=== PATIENT | female | born 1945 | race Caucasian/White ===

== ENCOUNTER 2016-09-12 12:48 | Emergency (ER) | payer OTHER ==
[2016-09-12 12:54] VITALS: BMI 33.8
--- NOTE | 2016-09-12 13:07 | PDOC ---
History of Present Illness <MaynorTorey fishman - Last Filed: 09/12/16 18:04> - History of Present Illness Initial Comments: 09/12/16 13:30 The patient is a 71 year old female, with a significant past medical history of hypertension, high cholesterol, COPD, abdominal surgical history including exploratory laparotomy for endometriosis with subsequent strangulate and hernia in 1988 w/o complications or obstructions since then now presents with 2 weeks of constant abdominal pain, bloating and constipation. She reports seeing her PCP seven days after the onset of her onset of symptoms where she had an abdominal CT revealing an "infection of her large intestine." She reports completing a course of flagyl 2 days ago but denies improvement of her symptoms. She states she feels mild intermittent nausea, but denies emesis. She states she has not been passing gas from below or above. She admits to having an appetite, however, reports a decreased in PO intake secondary to increased abdominal pain after eating. She reports taking laxatives with 2 subsequent small bowel movement last night. She describes her BM as small pieces of feces mixed with water. She reports she is urinating well without any acute symptoms. She denies chest pain, shortness of breath, headache and dizziness. She denies fever, chills, vomit, diarrhea. She denies dysuria, frequency, urgency and hematuria. Allergies: codeine phosphate Past surgical history: abdominal exploratory x2 (endometriosis), hernia repair ( 1988) PCP - Dr. Carlos Cuellar <Mireya Corrales - Last Filed: 09/12/16 18:08> - General Chief Complaint: Pain, Acute Stated Complaint: PAIN Time Seen by Provider: 09/12/16 13:06 Past History - Past Medical History Anemia: No Asthma: Yes ( A CHILD, hx of TB) Cancer: No Cardiac Disorders: No CVA: No COPD: No (BRONCHITIS) CHF: No Dementia: No Diabetes: No GI Disorders: Yes (ULCER) Disorders: Yes (endometriosis) HTN: Yes Hypercholesterolemia: Yes Liver Disease: No Seizures: No Thyroid Disease: Yes (HYPOTHYROIDISM) Lung CA: Yes (anxeity) - Surgical History Abdominal Surgery: Yes (HERNIA &explaratory x2) Appendectomy: No Cardiac Surgery: No Cholecystectomy: No Lung Surgery: No Neurologic Surgery: No Orthopedic Surgery: No (KNEE PAIN-HAS KNEE BRACES) - Psycho/Social/Smoking Cessation Hx Anxiety: No Suicidal Ideation: No Smoking History: Former smoker Have you smoked in the past 12 months: No If you are a former smoker, when did you quit?: 2006 Information on smoking cessation initiated: No Hx Alcohol Use: No Drug/Substance Use Hx: No Substance Use Type: None Hx Substance Use Treatment: No <Torey Gordon - Last Filed: 09/12/16 18:04> <Mireya Corrales - Last Filed: 09/12/16 18:08> - Past Medical History Allergies/Adverse Reactions: Allergies Allergy/AdvReac Type Severity Reaction Status Date / Time codeine phosphate AdvReac Intermediate depression Verified 09/12/16 12:50 [From Codeine Phosphate Soluble] Home Medications: Ambulatory Orders Lisinopril/Hydrochlorothiazide [Lisinopril-Hctz 10-12.5 mg Tab] 1 each PO DAILY #0 tablet 11/18/11 Ranitidine Oral Solution [Zantac Oral Solution -] 150 mg PO BID #0 cup 11/18/11 Advair 100Mcg/50Mcg - 1 g NEB Q12H 06/21/13 Albuterol Sulfate 1 inh IH TID 06/21/13 Levothyroxine Sodium 100 mcg PO DAILY 06/21/13 Singulair - 10 mg PO DAILY 06/21/13 Xanax - 2 mg PO BID PRN 06/21/13 Budesonide/Formeterol Fumarate [SYMBICORT 160/4.5mcg -] 2 inh IH BID #7 inhaler 09/05/14 Fenofibric Acid [Trilipix -] 135 mg PO DAILY #0 cap 09/05/14 Review of Systems - Review of Systems Constitutional: No: Chills, Fever Respiratory: No: Cough, Shortness of Breath Cardiac (ROS): No: Chest Pain ABD/GI: Yes: Constipated, Nausea, Poor Appetite. No: Diarrhea, Vomiting : Yes: Flank Pain. No: Dysuria, Hematuria All Other Systems: Reviewed and Negative <Torey Gordon - Last Filed: 09/12/16 18:04> *Physical Exam - Vital Signs Last Vital Signs Temp Pulse Resp BP Pulse Ox 98.0 F 95 H 18 138/65 100 09/12/16 12:50 09/12/16 12:50 09/12/16 12:50 09/12/16 12:50 09/12/16 12:50 <Torey Gordon - Last Filed: 09/12/16 18:04> - Vital Signs Last Vital Signs Temp Pulse Resp BP Pulse Ox 98.0 F 95 H 18 138/65 100 09/12/16 12:50 09/12/16 12:50 09/12/16 12:50 09/12/16 12:50 09/12/16 12:50 - Physical Exam Comments: 09/12/16 13:30 GENERAL: The patient is awake, alert, and fully oriented, in no acute distress. HEAD: Normal with no signs of trauma. EYES: Pupils equal, round and reactive to light, extraocular movements intact, sclera anicteric, conjunctiva clear with no pallor. ENT: (+) dry mucous membranes. Ears normal, nares patent, oropharynx clear without exudates. NECK: Normal range of motion, supple without lymphadenopathy, JVD, or masses. LUNGS: Breath sounds equal, clear to auscultation bilaterally. No wheeze/ crackles. HEART: Regular rate and rhythm, normal S1 and S2 without murmur or rub. ABDOMEN: (+) Pt has decreased bowel sounds on the left. Slightly distended but soft. There is left mid and lower quadrant tenderness to palpation with referred pain and tenderness to the right. Right CVA tenderness. no upper abdominal tenderness. Pt has healed incisional scars to lower abdomen. There is an easily reducible ventral hernia. Soft. nondistended. No guarding or rebound. No palpable masses. No hepatosplenomegaly. EXTREMITIES: Normal range of motion, no edema. No clubbing or cyanosis. No cords, erythema, or tenderness. NEUROLOGICAL: Cranial nerves II through XII grossly intact. Normal speech, normal gait. PSYCH: Normal mood, normal affect. SKIN: Warm, Dry, normal turgor, no rashes or lesions noted. RECTAL: Good tone, soft brown stool in rectal vault. no palpable hemorrhoids. No masses <Mireya Corrales - Last Filed: 09/12/16 18:08> ED Treatment Course - LABORATORY CBC & Chemistry Diagram: 09/12/16 13:35 09/12/16 13:35 <Torey Gordon - Last Filed: 09/12/16 18:04> - LABORATORY CBC & Chemistry Diagram: 09/12/16 13:35 09/12/16 13:35 - RADIOLOGY Radiograph Interpretation: 09/12/16 16:[address] was read by Dr. Kirk at 16:51 Impression: No definite CT findings of acute pathology identified. Sigmoid diverticulosis is noted without evidence of acute diverticulitis. 2mm nonobstructing left renal calculus. A nonspecific 4mm enhancing subscapular focus is seen along the right hepatic dome-?hemangioma. Correlate clinically and with 3 month follow-up contrast enhanced CT or MRI. Possible diffuse hepatic steatosis. <Mireya Corrales - Last Filed: 09/12/16 18:08> Medical Decision Making - Medical Decision Making 09/12/16 13:33 A portion of this note was documented by scribe services under my direction. I have reviewed the details of the note, within reason, and agree with the documentation with the following case summary and management plan written by me. 71-year-old female with history of hypertension, high cholesterol, COPD, abdominal surgical history including exploratory laparotomy for endometriosis with subsequent strangulate and hernia in 1988, no complications or obstructions since then now presents with 2 weeks of constant abdominal pain with constipation. Patient noted constipation with abdominal bloating and generalized discomfort for one week, had a CAT scan by her primary physician that showed a "large intestine infection" and she was treated with Flagyl for one week without improvement in her symptoms. She also took laxatives with 2 subsequent small bowel movement last night, presents today for persistent pain and distention and constipation. Vital signs normal. Generally well-appearing, slightly dry mucosa Abdomen is soft but distended, tender predominantly in the left mid and left lower quadrant with some guarding but no rebound. No referred pain. Mild right CVA tenderness. Ventral hernia but not incarcerated, spontaneously reduces. 71-year-old female with abdominal surgical history presents with constipation and persistent abdominal pain. Based on the recent CT, question diverticulitis or colitis but only partially treated with Flagyl. Rule out SBO or ileus given her history. Rule out UTI given the right CVA pain. Labs, urinalysis CT of the abdomen and pelvis Pain control, nausea and rolled, hydration Reassess 09/12/16 14:41 White count 8.5 with normal differential, chemistries are within normal limits including lipase. Urinalysis pending. CAT scan pending. Feels better after pain/nausea meds. 09/12/16 17:29 CTAP without acute pathology. Feels much better, abdominal exam improved. Passing flatus but no BM here. No evidence of tics/colitis/impaction on CTAP. Requesting food, will PO trial and reassess. ? gastritis as cause of post-prandial bloating. Would increase zantac to twice daily and have GI referral for egd and colonoscopy. Pt agrees, will f/u with her PMD, understands return criteria. <Torey Gordon - Last Filed: 09/12/16 18:04> *DC/Admit/Observation/Transfer <Torey Gordon - Last Filed: 09/12/16 18:04> - Attestations Scribe Attestion: 09/12/16 13:33 Documentation prepared by Mireya Corrales, acting as medical supply technician for Torey Gordon MD, <Mireya Corrales - Last Filed: 09/12/16 18:08> Diagnosis at time of Disposition: Abdominal pain, left lower quadrant Constipation Qualifiers: Constipation type: unspecified constipation type Qualified Code(s): K59.00 - Constipation, unspecified - Discharge Dispostion Disposition: HOME Condition at time of disposition: Improved - Referrals Referrals: Carlos Cuellar MD [Primary Care Provider] - Raymon Hoff MD [Staff Physician] - Sedrick Kim DO [Staff Physician] - - Patient Instructions Printed Discharge Instructions: DI for Gastritis, DI for Constipation Additional Instructions: Activity as tolerated. Stay hydrated. Advance diet as tolerated, avoiding dairy , spicy or fatty food, caffeine and alcohol. Blood tests and a CT scan showed no acute abnormalities. There is no evidence of a current intestine infection or blockage. Your symptoms could be due to gastritis, inflammation in the stomach. Increase Zantac to twice daily and you should see a GI specialist for both upper and lower endoscopy. Continue your medications as previously prescribed by your physician, but increase Zantac to twice daily. You should follow up with your primary doctor and a GI specialist (consider calling Dr. Kim or Dr. Hoff) as soon as possible regarding today's emergency department visit. Return to the emergency department for any new or concerning symptoms, particularly persistent or worsening pain, fevers or chills, bloody stool or severe constipation, vomiting.
[2016-09-12] MEDS ORDERED: SODIUM CHLORIDE 1,000 ML IV ONE (13:27)
[2016-09-12] MEDS ORDERED: ONDANSETRON 4 MG/2 ML VIAL IVPB ONE (13:27)
[2016-09-12] MEDS ORDERED: morphine CARPU-JECT 4 MG/1 ML DISP.SYRIN IVPUSH ONE (13:27)
[2016-09-12 13:45] LABS: MCH 25.1 pg (25.7-33.7); MCHC 32.1 g/dl (32.0-36.0); MEAN CELL VOLUME 78.1 fl (80-96); MEAN PLT VOLUME 7.9 fl (7.5-11.1); PLATELET COUNT 291 K/MM3 (134-434); RDW 16.8 % (11.6-15.6); WHITE BLOOD COUNT 8.5 K/mm3 (4.0-10.0)
[2016-09-12] MEDS ORDERED: morphine CARPU-JECT 4 MG/1 ML DISP.SYRIN ONE (13:58)
[2016-09-12 14:09] LABS: ALBUMIN 4.5 g/dl (3.4-5.0); ALK PHOS 114 U/L (45-117); ANION GAP 8 (8-16); BILIRUBIN,TOTAL 0.4 mg/dL (0.2-1.0); CALCIUM 9.8 mg/dL (8.5-10.1); CO2 30 mmol/L (21-32); CREATININE 0.7 mg/dL (0.55-1.02); GLUCOSE,RANDOM 102 mg/dL (74-106); SGPT/ALT 59 U/L (12-78); TOT PROT 7.9 g/dl (6.4-8.2)
[2016-09-12 14:12] LABS: SGOT/AST 61 U/L (15-37)
[2016-09-12 14:15] LABS: PLATELET ESTIMATE ADEQUATE (NORMAL)
[2016-09-12 15:13] LABS: URINE APPEARANCE CLEAR; URINE BILIRUBIN NEGATIVE (NEGATIVE); URINE BLOOD NEGATIVE (NEGATIVE); URINE COLOR YELLOW; URINE GLUCOSE (UA) NEGATIVE (NEGATIVE); URINE KETONE NEGATIVE (NEGATIVE); URINE NITRITE NEGATIVE (NEGATIVE); URINE PROTEIN NEGATIVE (NEGATIVE); URINE UROBILINOGEN NEGATIVE E.U./dl (0.2-1.0)
[2016-09-12 15:16] LABS: URINE LEUK ESTERASE TRACE (NEGATIVE)
[2016-09-12 17:27] VITALS: BP 117/66; PULSE 77; TEMP 97.6
== END 2016-09-12 18:19 | disposition home or self-care (01) ==
LOC: JER 12:48
PROC: 3E033NZ Introduction of Analgesics, Hypnotics, Sedatives into Peripheral Vein, Percutaneous Approach (ICD-10-PCS; principal; 2016-09-12)
PROC: 3E033GC Introduction of Other Therapeutic Substance into Peripheral Vein, Percutaneous Approach (ICD-10-PCS; 2016-09-12)
DX: R10.32 Left lower quadrant pain (principal); K59.00 Constipation, unspecified; I10 Essential (primary) hypertension; E78.00 Pure hypercholesterolemia, unspecified; E03.9 Hypothyroidism, unspecified; J44.9 Chronic obstructive pulmonary disease, unspecified
CPT/HCPCS: 36415; 74177-TC; 80053; 81003; 81015; 83690; 85025; 96374; 96375; 99282-25; Q9967

== ENCOUNTER 2021-05-08 11:42 | Emergency (ER) | payer OTHER ==
[2021-05-08 11:52] VITALS: BP 142/78; PULSE 99; TEMP 98.5; BMI 29.7
[2021-05-08] MEDS ORDERED: ACETAMINOPHEN 1000 MG/100 ML BAG IVPB ONE (12:24)
[2021-05-08] MEDS ORDERED: SODIUM CHLORIDE 1,000 ML IV STA (12:24)
[2021-05-08 14:25] LABS: EOS % 1.5 % (0-4.5); HEMATOCRIT 38.8 % (32.4-45.2); HEMOGLOBIN 11.9 GM/dL (10.7-15.3); LYMPH % 12.5 % (8-40); MCH 23.5 pg (25.7-33.7); MCHC 30.6 g/dl (32.0-36.0); MEAN CELL VOLUME 76.7 fl (80-96); MEAN PLT VOLUME 7.6 fl (7.5-11.1); MONO % 5.9 % (3.8-10.2); NEUT % 79.1 % (42.8-82.8); PLATELET COUNT 359 10^3/uL (134-434); RBC 5.06 M/mm3 (3.60-5.2); RDW 16.9 % (11.6-15.6); WHITE BLOOD COUNT 9.9 K/mm3 (4.0-10.0)
[2021-05-08] MEDS ORDERED: ACETAMINOPHEN INJECTION 100 ML IVPB ONE (14:48)
[2021-05-08 15:04] LABS: ALBUMIN 3.6 g/dl (3.4-5.0); BLOOD UREA NITROGEN 15.9 mg/dL (7-18); CALCIUM 9.8 mg/dL (8.5-10.1)
[2021-05-08 15:07] LABS: CREATININE 0.6 mg/dL (0.55-1.3)
[2021-05-08 15:09] LABS: BILIRUBIN,TOTAL 0.3 mg/dL (0.2-1); TOT PROT 7.4 g/dl (6.4-8.2)
[2021-05-08 17:28] LABS: PH,URINE 5.5 (5.0-8.0); URINE APPEARANCE CLEAR; URINE BILIRUBIN NEGATIVE (NEGATIVE); URINE COLOR YELLOW; URINE GLUCOSE (UA) NEGATIVE (NEGATIVE); URINE KETONE 1+ (NEGATIVE); URINE LEUK ESTERASE NEGATIVE (NEGATIVE); URINE NITRITE NEGATIVE (NEGATIVE); URINE PROTEIN TRACE (NEGATIVE); URINE UROBILINOGEN 0.2 mg/dL (0.2-1.0)
== END 2021-05-08 19:05 | disposition home or self-care (01) ==
LOC: JER 11:42
PROC: 3E033GC Introduction of Other Therapeutic Substance into Peripheral Vein, Percutaneous Approach (ICD-10-PCS; principal; 2021-05-08)
DX: N28.1 Cyst of kidney, acquired (principal)
CPT/HCPCS: 74177-TC; 80053; 81003; 85025; 87086; 93005; 93010; 96361; 96374; 99285-25; Q9967

== ENCOUNTER 2021-10-14 12:55 | Emergency (ER) | payer OTHER ==
[2021-10-14 13:41] VITALS: BP 133/87; PULSE 72; RESP 18; TEMP 98.7; BMI 30.9
[2021-10-14 15:47] LABS: BASO % 0.9 % (0-2.0); EOS % 1.2 % (0-4.5); HEMATOCRIT 34.3 % (32.4-45.2); HEMOGLOBIN 11.2 GM/dL (10.7-15.3); LYMPH % 11.4 % (8-40); MCH 25.9 pg (25.7-33.7); MCHC 32.6 g/dl (32.0-36.0); MEAN CELL VOLUME 79.5 fl (80-96); MONO % 5.4 % (3.8-10.2); NEUT % 81.1 % (42.8-82.8); PLATELET COUNT 373 10^3/uL (134-434); RBC 4.32 M/mm3 (3.60-5.2); WHITE BLOOD COUNT 11.1 K/mm3 (4.0-10.0)
[2021-10-14 16:05] LABS: BLOOD UREA NITROGEN 13.6 mg/dL (7-18)
[2021-10-14 16:08] LABS: CREATININE 0.6 mg/dL (0.55-1.3)
[2021-10-14 16:10] LABS: BILIRUBIN,TOTAL 0.4 mg/dL (0.2-1); TOT PROT 7.3 g/dl (6.4-8.2)
[2021-10-14 17:06] LABS: EPI CELLS 14 /uL (0-25.1); HYALINE CASTS 0 /uL (0-3.1); PH,URINE 7.5 (5.0-8.0); URINE APPEARANCE CLEAR; URINE BACTERIA 36 /uL (0-1359); URINE BILIRUBIN NEGATIVE (NEGATIVE); URINE COLOR YELLOW; URINE GLUCOSE (UA) NEGATIVE (NEGATIVE); URINE KETONE NEGATIVE (NEGATIVE); URINE LEUK ESTERASE TRACE (NEGATIVE); URINE NITRITE NEGATIVE (NEGATIVE); URINE PROTEIN NEGATIVE (NEGATIVE); URINE RBC 9 /uL (0-23.9); URINE WBC 10 /uL (0-25.8)
== END 2021-10-14 19:12 | disposition home or self-care (01) ==
LOC: JER 12:55
DX: R10.31 Right lower quadrant pain (principal); K76.9 Liver disease, unspecified
CPT/HCPCS: 36415; 71045-TC-FY; 74176-TC; 80053; 81003; 85025; 87086; 93005; 93010; 99285-25

== ENCOUNTER 2021-10-18 11:28 | Emergency (ER) | payer OTHER ==
[2021-10-18 11:37] VITALS: BP 132/63; PULSE 79; RESP 19; TEMP 98.3; BMI 30.1
[2021-10-18] MEDS ORDERED: ACETAMINOPHEN 500 MG TABLET (FP) PO ONE (12:15)
[2021-10-18] MEDS ORDERED: ACETAMINOPHEN 325 MG TABLET (FP) ONE (12:31)
== END 2021-10-18 13:30 | disposition left against medical advice (07) ==
LOC: JER 11:28
DX: R10.31 Right lower quadrant pain (principal); R19.7 Diarrhea, unspecified
CPT/HCPCS: 99283-25

== ENCOUNTER 2021-12-19 11:04 | Emergency (ER) | payer OTHER ==
[2021-12-19 11:11] VITALS: BMI 28.3
[2021-12-19] MEDS ORDERED: ACETAMINOPHEN 1000 MG/100 ML BAG IVPB ONE (12:03)
[2021-12-19] MEDS ORDERED: ONDANSETRON 4 MG/2 ML VIAL IVPUSH ONE (12:03)
[2021-12-19] MEDS ORDERED: ONDANSETRON 4 MG/2 ML VIAL ONE (12:57)
[2021-12-19] MEDS ORDERED: ACETAMINOPHEN INJECTION 100 ML IVPB ONE (12:57)
[2021-12-19 13:37] LABS: BASO % 0.9 % (0-2.0); EOS % 0.5 % (0-4.5); HEMOGLOBIN 11.3 GM/dL (10.7-15.3); LYMPH % 16.6 % (8-40); MCH 26.3 pg (25.7-33.7); MCHC 32.3 g/dl (32.0-36.0); MEAN CELL VOLUME 81.5 fl (80-96); MEAN PLT VOLUME 7.1 fl (7.5-11.1); MONO % 7.4 % (3.8-10.2); NEUT % 74.6 % (42.8-82.8); PLATELET COUNT 347 10^3/uL (134-434); RBC 4.29 M/mm3 (3.60-5.2); RDW 16.5 % (11.6-15.6)
[2021-12-19 13:38] LABS: PH,URINE 5.5 (5.0-8.0); URINE APPEARANCE CLEAR; URINE BILIRUBIN NEGATIVE (NEGATIVE); URINE COLOR YELLOW; URINE GLUCOSE (UA) NEGATIVE (NEGATIVE); URINE KETONE NEGATIVE (NEGATIVE); URINE LEUK ESTERASE NEGATIVE (NEGATIVE); URINE NITRITE NEGATIVE (NEGATIVE); URINE PROTEIN NEGATIVE (NEGATIVE); URINE UROBILINOGEN 0.2 mg/dL (0.2-1.0)
[2021-12-19 13:59] LABS: CALCIUM 9.9 mg/dL (8.5-10.1)
[2021-12-19 14:01] LABS: BLOOD UREA NITROGEN 17.1 mg/dL (7-18)
[2021-12-19 14:02] LABS: ALBUMIN 4.1 g/dl (3.4-5.0); MAGNESIUM 1.8 mg/dL (1.8-2.4)
[2021-12-19 14:03] LABS: CREATININE 0.7 mg/dL (0.55-1.3)
[2021-12-19 14:05] LABS: BILIRUBIN,TOTAL 0.4 mg/dL (0.2-1); TOT PROT 7.8 g/dl (6.4-8.2)
[2021-12-19 17:57] VITALS: BP 125/59; PULSE 65; RESP 16; TEMP 98.7
[2021-12-19] MEDS ORDERED: KETOROLAC TROMETHAMINE 30 MG/1 ML VIAL IM ONE (18:17)
== END 2021-12-19 19:41 | disposition home or self-care (01) ==
LOC: JER 11:04
PROC: 3E0333Z Introduction of Anti-inflammatory into Peripheral Vein, Percutaneous Approach (ICD-10-PCS; principal; 2021-12-19)
PROC: 3E0233Z Introduction of Anti-inflammatory into Muscle, Percutaneous Approach (ICD-10-PCS; 2021-12-19)
PROC: 3E033GC Introduction of Other Therapeutic Substance into Peripheral Vein, Percutaneous Approach (ICD-10-PCS; 2021-12-19)
DX: R10.9 Unspecified abdominal pain (principal)
CPT/HCPCS: 36415; 70450-TC; 71045-TC-FY; 74177-TC; 80053; 81003; 82550; 82553; 83605; 83690; 83735; 84484; 85025; 87086; 93005; 93010; 96372; 96374; 96375; 99285-25; C9803-CS; Q9967; U0003; U0005